=== PATIENT | male | born 1950 | race Two or more races ===

== ENCOUNTER 2025-08-06 10:29 | Emergency (ER) | payer OTHER ==
[~2025-08-06] VITALS: Ht 162.6 cm; Wt 63.9 kg
--- NOTE | 2025-08-06 10:41 | ECG ---
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
--- NOTE | 2025-08-06 10:53 | ED.PDOC ---
Altered Mental Status HPI Comments 75 y/o M, with unknown medical history presents to the ED for CC of ALOC. EMS reports, [place] is [place] [facility] [place] [address] where staff called d/t patient being altered and confused since, last night (08/05/25). Upon arrival to scene, patient was found to be A&Ox1 to self only. Upon arrival, to the ED patient is A&Ox3 and c/o dizziness. No other symptoms of modifiers are present at this time. Time Seen by MD: 10:40 Reviewed Notes: Nurses Notes, Erp Analyst Notes, Medications, Allergies Allergies: Coded Allergies: NO KNOWN ALLERGIES (Unverified , 08/06/25) Information Source: Patient, Emergency Med Personnel Mode of Arrival: EMS Severity: Moderate Timing: Hours Duration: Since onset Prehospital treatment: None Quality: Confusion Associated Signs and Symptoms: None Past Medical History PAST MEDICAL HISTORY: Unknown Surgical History: Unknown Family History Family History: Unknown Social History Lives In: Homeless Constitutional: denies: chills, diaphoresis, fatigue, fever, malaise, sweats, weakness, others EENTM: denies: blurred vision, double vision, ear bleeding, ear discharge, ear drainage, ear pain, ear ringing, eye pain, eye redness, hearing loss, mouth pain, mouth swelling, nasal discharge, nose bleeding, nose congestion, nose pain, photophobia, tearing, throat pain, throat swelling, voice changes, others Respiratory: denies: cough, hemoptysis, orthopnea, SOB at rest, shortness of breath, SOB with excertion, stridor, wheezing, others Cardiovascular: denies: chest pain, dizzy spells, diaphoresis, Dyspnea on exertion, edema, irregular heart beat, left arm pain, lightheadedness, palpitations, PND, syncope, others Gastrointestinal: denies: abdomen distended, abdominal pain, blood streaked bowels, constipated, diarrhea, dysphagia, difficulty swallowing, hematemesis, melena, nausea, poor appetite, poor fluid intake, rectal bleeding, rectal pain, vomiting, others Genitourinary: denies: burning, dysuria, flank pain, frequency, hematuria, incontinence, penile discharge, penile sore, pain, testicle pain, testicle swelling, urgency, others Neurological: reports: dizziness; denies: fainting, headache, left sided numbness, left sided weakness, numbness, paresthesia, pre-existing deficit, right sided numbness, right sided weakness, seizure, speech problems, tingling, tremors, weakness, others Musculoskeletal: denies: back pain, gout, joint pain, joint swelling, muscle pain, muscle stiffness, neck pain, others Integumetry: denies: bruises, change in color, change in hair/nails, dryness, laceration, lesions, lumps, rash, wounds, others Allergic/Immunocompromised: denies: Difficulty Healing, Frequent Infections, Hives, Itching, others Hematologic/Lymphatic: denies: anemia, blood clots, easy bleeding, easy bruising, swollen glands, others Endocrine: denies: excessive hunger, excessive sweating, excessive thirst, excessive urination, flushing, intolerance to cold, intolerance to heat, unexplained weight gain, unexplained weight loss, others Psychiatric: denies: anxiety, bipolar disorder, depression, hopeless, panic disorder, schizophrenia, sleepless, suicidal, others All Other Systems: Reviewed and Negative Physical Exam General Appearance: No Apparent Distress, Normal HEENT: Normal ENT Inspection, Pharynx Normal Neck: Full Range of Motion, Non-Tender, Normal, Normal Inspection Respiratory: Chest Non-Tender, Lungs Clear, No Accessory Muscle Use, No Respiratory Distress, Normal Breath Sounds Cardiovascular: No Edema, No Murmur, No Gallop, Normal Peripheral Pulses, Regular Rate/Rhythm Breast Exam: Deferred Gastrointestinal: No Organomegaly, Non Tender, No Pulsatile Mass, Normal Bowel Sounds, Soft Genitalia: Deferred Pelvic: Deferred Rectal: Deferred Extremities: No calf tenderness, Normal capillary refill, Normal inspection, Normal range of motion, Non-tender, No pedal edema Musculoskeletal : Apperance: Normal 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 Martin. Rate of 45 sinus rhythm right bundle-branch block no significant ST changes. Was a procedure done? Was a procedure done?: No Differential Diagnosis (ALOC) Differential Diagnosis: Dehydration, Sepsis, Other (UTI) X-Ray, Labs, Meds, VS Vital Signs Date Time Temp Pulse Resp B/P (MAP) Pulse Ox O2 Delivery O2 Flow Rate FiO2 08/09/25 14:30 97.9 74 14 158/80 (106) 96 97.9 08/09/25 14:30 74 14 96 Room Air* 0 21 08/08/25 19:34 173/77 08/08/25 19:25 Room Air* 0 21 08/08/25 19:25 97.7 79 16 173/77 (109) 95 97.7 08/08/25 17:03 68 16 150/66 (94) 96 08/08/25 14:00 80 165/109 (127) 93 08/08/25 12:10 176/71 08/08/25 12:00 55 11 168/64 (98) 97 08/08/25 10:00 64 15 179/82 (114) 97 08/08/25 08:00 72 12 97 Room Air* 0 21 08/08/25 08:00 97.2 72 12 163/76 (105) 97 97.2 08/08/25 06:00 85 15 148/82 (104) 97 08/08/25 04:00 81 14 106/67 (80) 93 08/08/25 00:00 60 18 180/79 (112) 95 08/07/25 22:00 54 17 139/63 (88) 95 08/07/25 20:49 193/65 08/07/25 19:30 Room Air* 0 21 08/07/25 19:30 97.7 74 22 187/72 (110) 95 97.7 08/07/25 18:30 52 18 147/54 (85) 96 08/07/25 09:50 45 18 10 Room Air* 0 21 08/07/25 08:17 52 11 167/71 (103) 97 08/07/25 07:58 97.6 43 16 140/56 (84) 97 97.6 08/07/25 06:00 97.8 54 22 140/56 (84) 96 97.8 08/07/25 04:00 43 15 155/63 (93) 98 08/07/25 02:00 45 14 124/48 (73) 96 08/07/25 00:00 49 14 165/75 (105) 98 08/06/25 22:02 53 20 173/63 (99) 95 08/06/25 19:35 45 16 95 Room Air* 0 21 08/06/25 19:25 97.8 45 16 176/70 (105) 95 97.8 08/06/25 17:59 98.9 66 18 154/61 (92) 97 98.9 08/06/25 17:59 66 18 97 Room Air* 0 21 08/06/25 10:33 62 08/06/25 10:30 98.9 62 20 128/57 97 98.9 Lab Test 08/06/25 17:45 08/06/25 17:26 08/06/25 16:30 08/06/25 14:34 Range/Units Urine Color Colorless Yellow Urine Clarity Clear Clear Urine pH 5.0 5.0-9.0 Urine Specific [place] 1.006 1.001-1.035 Urine Protein Negative Negative Urine Ketones Negative Negative Urine Blood Negative Negative /uL Urine Nitrite Negative Negative Urine Bilirubin Negative Negative Urine Urobilinogen Normal Negative mg/dL Urine Leukocyte Esterase Negative Negative /uL Urine RBC <1 0 - 3 /hpf Urine Microscopic WBC 0-3 /HPF Urine Squamous Epithelial Cells Few <5 /hpf Urine Bacteria None seen None Seen /hpf Urine Glucose Normal Normal mg/dL Urine Opiates Screen Neg NEGATIVE Urine Fentanyl Screen Neg NEGATIVE Urine Barbiturates Screen Neg NEGATIVE Urine Phencyclidine Screen Neg NEGATIVE Urine Amphetamines Screen Neg NEGATIVE Urine Benzodiazepines Screen Neg NEGATIVE Urine Cocaine Screen Neg NEGATIVE Urine Cannabinoids Screen Neg NEGATIVE Influenza Type A Antigen Negative Negative Influenza Type B Antigen Negative Negative SARS-CoV-2 Antigen (Rapid) Negative NEGATIVE Thyroid Stimulating Hormone (TSH) 2.92 0.55-4.78 uIU/mL Plasma/Serum Blood Alcohol < 3.0 <10 mg/dL Troponin I High Sensitivity 15 </=54 ng/L Test 08/06/25 12:19 08/06/25 11:13 Range/Units Troponin I High Sensitivity 15 13 </=54 ng/L White Blood Count 4.8 4.4-10.8 10^3/uL Red Blood Count 4.15 L 4.5-5.90 10^6/uL Hemoglobin 11.4 L 13.5-17.5 g/dL Hematocrit 34.2 L 41.0-53.0 % Mean Corpuscular Volume 82.5 80.0-100.0 fL Mean Corpuscular Hemoglobin 27.4 L 28.0-32.0 pg Mean Corpuscular Hemoglobin Concent 33.2 32.0-36.0 g/dL Red Cell Distribution Width 17.3 H 11.8-14.3 % Platelet Count 279 140-450 10^3/uL Mean Platelet Volume 7.7 6.9-10.8 fL Neutrophils (%) (Auto) 69.5 37.0-80.0 % Lymphocytes (%) (Auto) 16.9 10.0-50.0 % Monocytes (%) (Auto) 10.1 0.0-12.0 % Eosinophils (%) (Auto) 2.5 0.0-7.0 % Basophils (%) (Auto) 1.0 0.0-2.0 % Neutrophils # (Auto) 3.3 1.6-8.6 10 ^3/uL Lymphocytes # (Auto) 0.8 0.4-5.4 10 ^3/uL Monocytes # (Auto) 0.5 0-1.3 10 ^3/uL Eosinophils # (Auto) 0.1 0-0.8 10 ^3/uL Basophils # (Auto) 0 0-0.2 10 ^3/uL Nucleated Red Blood Cells 0.1 % Sodium Level 138 136-145 mmol/L Potassium Level 3.8 3.5-5.1 mmol/L Chloride Level 104 98-107 mmol/L Carbon Dioxide Level 23 20-31 mmol/L Anion Gap 11 5-15 Blood Urea Nitrogen 9 9-23 mg/dL Creatinine 1.06 0.700-1.30 mg/dL Glomerular Filtration Rate Calc 72 >90 mL/min BUN/Creatinine Ratio 8.5 L 10.0-20.0 Serum Glucose 107 H 74-106 mg/dL Calcium Level 8.9 8.7-10.4 mg/dL [facility] [id number] [place] [id number] Ph: [phone] DIAGNOSTIC IMAGING Diagnostic Imaging Report : [id number] Signed PATIENT: JOLENE LUCERO ACCT: [id number] UNIT: [id number] : 1950 LOC: ER ROOM / BED: / AGE / SEX: 75 / M ADM STATUS: REG ER SERVICE 1045 ORDERING PHYSICIAN: MATTEO OSCAR MD PROCEDURE(s): CXRP - CHEST PORTABLE REASON: [facility] ORDER NUMBER(s): [id number], ACCESSION NUMBER(s): [id number] CHEST PORTABLE, HISTORY: ams COMPARISON: None None TECHNICAL DATA: 1 view of the chest was obtained. FINDINGS: Lines and tubes: None Cardiomediastinal silhouette: normal Pulmonary vasculature: normal Lung expansion: normal Lung airspace: normal Lung interstitium: normal Pleura: normal Pneumothorax: no Bones: Unremarkable Other: no IMPRESSION: No acute intrathoracic abnormality. ATED BY: ROB FERGUSON MD DICTATED DATE/TIME: 08/06/25 111 SIGNED BY: ROB FERGUSON MD SIGNED DATE/TIME: 08/06/251116 CC: [place] [id number] Ph: [phone] DIAGNOSTIC IMAGING Diagnostic Imaging Report : [id number] Signed PATIENT: JOLENE LUCERO ACCT: [id number] UNIT: [id number] : 1950 LOC: ER ROOM / BED: / AGE / SEX: 75 / M ADM STATUS: REG ER SERVICE 1045 ORDERING PHYSICIAN: MATTEO OSCAR MD PROCEDURE(s): HWOCT - HEAD WITHOUT CONTRAST REASON: [facility] ORDER NUMBER(s): [id number], ACCESSION NUMBER(s): [id number] CT HEAD WITHOUT CONTRAST Indication: [facility] EXAM DATE: 08/06/2025 10:46 AM COMPARISON: None TECHNIQUE: CT of the head without intravenous contrast. RADIATION DOSE: CTDIvol: 51.56 mGy, DLP: 51.56 mGy*cm FINDINGS: There is no intracranial hemorrhage. There is no extra-axial fluid, mass, mass effect or midline shift. The ventricles are midline and normal in size. Basilar cisterns are patent. There are moderate to advanced periventricular and subcortical white matter chronic microvascular ischemic changes. 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 The paranasal sinuses and mastoids are well-pneumatized. Imaged portion of the orbits are unremarkable. IMPRESSION: No intracranial hemorrhage or mass effect. Moderate to advanced chronic microvascular ischemic changes. Numerous old arian ateral basal ganglia lacunar infarcts ATED BY: PAVAN BAINS MD DICTATED DATE/TIME: 08/06/251122 SIGNED BY: PAVAN BAINS MD SIGNED DATE/TIME: 08/06/251122 CC: Time of 1ST Reevaluation: 11:10 Reevaluation 1ST: Unchanged Patient Education/Counseling: Diagnosis, Treatment Family Education/Counseling: No Family Present SEPSIS Sepsis Screen Physician Orders Electrocardigram (08/06/25 10:37) Chest Portable (08/06/25 10:45) Head Without Contrast (08/06/25 10:45) Electrocardigram (08/06/25 10:45) Electrocardigram (08/06/25 11:45) Electrocardigram (08/06/25 13:45) * [place] [employer] Consult (08/06/25 ) Discharge (08/06/25 19:13) * [place] [employer] Consult (08/07/25 ) Vital Signs Date Time Temp Pulse Resp B/P (MAP) Pulse Ox O2 Delivery O2 Flow Rate FiO2 08/09/25 14:30 97.9 74 14 158/80 (106) 96 97.9 08/09/25 14:30 74 14 96 Room Air* 0 21 08/08/25 19:34 173/77 08/08/25 19:25 Room Air* 0 21 08/08/25 19:25 97.7 79 16 173/77 (109) 95 97.7 08/08/25 17:03 68 16 150/66 (94) 96 08/08/25 14:00 80 165/109 (127) 93 08/08/25 12:10 176/71 08/08/25 12:00 55 11 168/64 (98) 97 08/08/25 10:00 64 15 179/82 (114) 97 08/08/25 08:00 72 12 97 Room Air* 0 21 08/08/25 08:00 97.2 72 12 163/76 (105) 97 97.2 08/08/25 06:00 85 15 148/82 (104) 97 08/08/25 04:00 81 14 106/67 (80) 93 08/08/25 00:00 60 18 180/79 (112) 95 08/07/25 22:00 54 17 139/63 (88) 95 08/07/25 20:49 193/65 08/07/25 19:30 Room Air* 0 21 08/07/25 19:30 97.7 74 22 187/72 (110) 95 97.7 08/07/25 18:30 52 18 147/54 (85) 96 08/07/25 09:50 45 18 10 Room Air* 0 21 08/07/25 08:17 52 11 167/71 (103) 97 08/07/25 07:58 97.6 43 16 140/56 (84) 97 97.6 08/07/25 06:00 97.8 54 22 140/56 (84) 96 97.8 08/07/25 04:00 43 15 155/63 (93) 98 08/07/25 02:00 45 14 124/48 (73) 96 08/07/25 00:00 49 14 165/75 (105) 98 08/06/25 22:02 53 20 173/63 (99) 95 08/06/25 19:35 45 16 95 Room Air* 0 21 08/06/25 19:25 97.8 45 16 176/70 (105) 95 97.8 08/06/25 17:59 98.9 66 18 154/61 (92) 97 98.9 08/06/25 17:59 66 18 97 Room Air* 0 21 08/06/25 10:33 62 08/06/25 10:30 98.9 62 20 128/57 97 98.9 Laboratory Tests Test 08/06/25 11:13 White Blood Count 4.8 10^3/uL (4.4-10.8) Departure 1 Departure Time of Disposition: 06:13 (Patient with concern for acute metabolic encephalopathy versus CVA. We will admit patient for further workup and expert consultation) Impression: Primary Impression: Metabolic encephalopathy Additional Impressions: Bradycardia Generalized weakness Disposition: ADMITTED INPATIENT Admit to: Med Surg Condition: Guarded Critical Care Note Critical Care Time?: No Stability Stability form required: No Heart Score Heart Score: Heart Score Response (Comments) Value History N/A 0 EKG N/A 0 Age N/A 0 Risk Factors N/A 0 Troponin N/A 0 Total 0 I personally scribed for MATTEO OSCAR MD ([email or web address]) on 08/06/25 at 10:53. Electronically submitted by Yola House ([email or web address]). I personally scribed for MATTEO OSCAR MD ([facility]) on 08/06/25 at 12:20. Electronically submitted by Yola House ([email or web address]). I personally scribed for MATTEO OSCAR MD ([facility]) on 08/06/25 at 12:27. Electronically submitted by Yola House ([email or web address]). I personally scribed for MATTEO OSCAR MD ([email or web address]) on 08/06/25 at 13:22. Electronically submitted by Yola House ([email or web address]). MATTEO OSCAR MD Aug 06, 2025 10:53 DAWN MARTIN MD Aug 07, 2025 08:30
--- NOTE | 2025-08-06 11:19 | DVH ---
XY CHEST PORTABLE, HISTORY: ams COMPARISON: None None TECHNICAL DATA: 1 view of the chest was obtained. FINDINGS: Lines and tubes: None Cardiomediastinal silhouette: normal Pulmonary vasculature: normal Lung expansion: normal Lung airspace: normal Lung interstitium: normal Pleura: normal Pneumothorax: no Bones: Unremarkable Other: no IMPRESSION: No acute intrathoracic abnormality.
[2025-08-06 11:21] LABS: Hematocrit 34.2 % (41.0-53.0); Hemoglobin 11.4 g/dL (13.5-17.5); Mean Corpuscular Hemoglobin 27.4 pg (28.0-32.0); Mean Corpuscular Volume 82.5 fL (80.0-100.0); Nucleated Red Blood Cells % 0.1 %
--- NOTE | 2025-08-06 11:22 | DVH ---
CT HEAD WITHOUT CONTRAST Indication: [facility] EXAM DATE: 08/06/2025 10:46 AM COMPARISON: None TECHNIQUE: CT of the head without intravenous contrast. RADIATION DOSE: CTDIvol: 51.56 mGy, DLP: 51.56 mGy*cm FINDINGS: There is no intracranial hemorrhage. There is no extra-axial fluid, mass, mass effect or midline shif t. The ventricles are midline and normal in size. Basilar cisterns are patent. There are moderate to advanced periventricular and subcortical white matter chronic microvascular ischemic changes. 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 The paranasal sinuses and mastoids are well-pneumatized. Imaged portion of the orbits are unremarkabl e. IMPRESSION: No intracranial hemorrhage or mass effect. Moderate to advanced chronic microvascular ischemic changes. Numerous old bilateral basal ganglia lac unar infarcts
[2025-08-06 11:36] LABS: Chloride 104 mmol/L (98-107); Potassium 3.8 mmol/L (3.5-5.1); Sodium 138 mmol/L (136-145)
[2025-08-06 11:37] LABS: Anion Gap 11 (5-15); Carbon Dioxide 23 mmol/L (20-31)
[2025-08-06 11:38] LABS: Calcium 8.9 mg/dL (8.7-10.4)
[2025-08-06 11:43] LABS: BUN/Creatinine Ratio 8.5 (10.0-20.0); Blood Urea Nitrogen 9 mg/dL (9-23); Glucose 107 mg/dL (74-106)
[2025-08-06] MEDS: LACTATED RINGER'S 1,000 ML IV ONE (17:20)
[2025-08-06 17:59] VITALS: PULSE 66; RESP 18; O2SAT 97
[2025-08-06 18:28] LABS: Urine Protein, UAD Negative (Negative)
[2025-08-06 18:44] LABS: Amphetamine Screen, Urine Neg (NEGATIVE); Barbiturate Scree,Urine Neg (NEGATIVE); Benzodiazephine Screen, Urine Neg (NEGATIVE); Cannabinoid Screen, Urine Neg (NEGATIVE); Cocaine Screen, Urine Neg (NEGATIVE); Opiate Scree,Urine Neg (NEGATIVE); Phencyclidine Screen, Urine Neg (NEGATIVE)
[2025-08-06 18:49] LABS: COVID19 ANTIGEN SOFIA FIA NEGATIVE (NEGATIVE)
[2025-08-06 19:35] VITALS: PULSE 45; RESP 16; O2SAT 95
[2025-08-07 09:50] VITALS: PULSE 45; RESP 18; O2SAT 10
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
[2025-08-07] MEDS: hydrALAZINE HCL 20 MG/ML VL IV PRN (20:49)
[2025-08-08 08:00] VITALS: PULSE 72; RESP 12; O2SAT 97
[2025-08-09 14:30] VITALS: BP 158/80; PULSE 74; RESP 14; TEMP 97.9; O2SAT 96
--- NOTE | 2025-08-10 12:20 | ECG ---
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
== END 2025-08-09 15:17 | disposition home or self-care (01) ==
LOC: ER 10:29 → EDBD 10:29 → ER 08-09 15:12
DX: G93.41 Metabolic encephalopathy (principal); R00.1 Bradycardia, unspecified; R53.1 Weakness; Z59.00 Homelessness unspecified; Z79.899 Other long term (current) drug therapy; Z20.822 Contact with and (suspected) exposure to COVID-19
CPT/HCPCS: 36415; 70450; 71045; 80048; 80307; 80320; 81001; 84443; 84484; 85025; 87426; 87804; 93005; 96361; 96374; 99285; J0360